=== PATIENT | male | born 1955 | race Caucasian/White ===

== ENCOUNTER 2023-05-02 11:53 | Emergency (ER) | payer MEDICARE, BC, SELFPAY ==
[2023-05-02] VITALS (7 sets, daily range): BP systolic 124–159; BP diastolic 85–92; PULSE 58–73; RESP 14–17; TEMP 36.7; O2SAT 96–100
--- NOTE | ~2023-05-02 | XR_ITS ---
EXAMINATION: XR chest 2V DATE: 05/02/2023 12:26 INDICATION: Substernal chest pain TECHNIQUE: PA and lateral views of the chest are obtained. COMPARISON: None available FINDINGS: The lungs are free of acute opacities. Calcified pulmonary nodules and calcified right teresa r lymph nodes are consistent with old granulomatous disease. No pleural effusion or pneumothorax. The heart size is normal. Changes of cardiac valve replacement are noted. There is mild thoracic spondyl osis. IMPRESSION: 1. No acute cardiopulmonary abnormality. Reviewed, dictated and finalized at location F. RENAL
--- NOTE | 2023-05-02 11:58 | ECG_ITS ---
Measurements Intervals Alvin Rate: 70 P: 104 CO: 198 QRS: 2 QRSD: 91 T: 53 QT: 378 QTc: 409 Interpretive Statements SINUS RHYTHM BASELINE ARTIFACT- I, III, AVL BORDERLINE ECG NO PREVIOUS ECG AVAILABLE FOR COMPARISON Electronically Signed On 05-03-2023 8:41:33 POND SUPERVISOR by Maxime Carey D.O.
[2023-05-02 12:35] LABS: Basophils Percent Auto 0.5 % (0.2-1.2); Eosinophils Absolute Auto 0.1 K/mm3 (0-0.3); Eosinophils Percent Auto 1.4 % (0-4.4); Hematocrit 39.1 % (42.0-52.0); Immature Granulocyte Absolute 0.01 K/mm3 (0.00-0.031); Immature Granulocyte Percent A 0.2 % (0-0.5); Lymphocytes Absolute Auto 1.64 K/mm3 (0.9-3.2); Lymphocytes Percent Auto 25.9 % (18.3-44.2); Mean Corpuscular HGB Conc 33.2 g/dl (32-36); Mean Corpuscular Hemoglobin 31.1 pg (26-34); Mean Corpuscular Volume 93.5 fl (80-100); Mean Platelet Volume 10.5 fl (7.4-10.4); Monocytes Absolute Auto 0.4 K/mm3 (0.1-0.6); Monocytes Percent Auto 6.6 % (2.6-8.5); Neutrophils Absolute Auto 4.2 K/mm3 (1.3-6.7); Neutrophils Percent Auto 65.4 % (45.5-73.1); Platelet Count Result 176 k/mm3 (150-375); Red Blood Count 4.18 M/mm3 (4.6-6.20); Red Cell Distribution Width 12.5 % (11.5-14.5); White Blood Count 6.3 K/mm3 (4.5-10.0)
[2023-05-02 12:40] LABS: Alanine Aminotransferase 21 U/L (6-50); Albumin Level 4.2 g/dL (3.5-5.1); Alkaline Phosphatase 44 U/L (38-126); Anion Gap 8 mmol/L (8-16); Aspartate Amino Transferase 23 U/L (17-59); Bilirubin,Total 0.9 mg/dL (0.2-1.3); Blood Urea Nitrogen 17 mg/dL (9-20); Calcium 9.3 mg/dL (8.4-10.2); Carbon Dioxide 24 mmol/L (22-30); Chloride 105 mmol/L (98-107); Estimated CRCL calculation 67 ml/min; Estimated Glomerular Filt Rate > 60; Glucose 112 mg/dL (65-110); Lipase 46 U/L (23-300); Potassium 3.7 mmol/L (3.4-5.0); Prothrombin Time 13.9 Seconds (11.1-14.7); Sodium 137 mmol/L (137-145)
[2023-05-02 12:42] LABS: Partial Thromboplastin Time 29.3 SECONDS (22.3-36.8)
[2023-05-02 12:51] LABS: Troponin I < 0.012 ng/mL (0.000-0.034)
[2023-05-02] MEDS: Please add drug allergy info to patient profile. 1 EACH XX (12:53)
--- NOTE | 2023-05-02 13:30 | ED.CHESTPAIN ---
HPI - Chest Pain General Chief Complaint: Chest Pain Stated Complaint: chest tightness Time Seen by Provider: 05/02/23 12:27 History of Present Illness HPI narrative: 68-year-old male presenting to emergency department for evaluation of intermittent chest pressure. Patient states he does have a history of aortic valve repair back in 2008 and does have close follow-up with Cardiology. Patient has never had a heart attack. Patient is unsure of when his last stress test was. Patient states sometimes he does have some chest pressure with exertion but states when he works harder the chest pressure goes away. Related Data Allergies Allergy/AdvReac Type Severity Reaction Status Date / Time gadobenic acid Allergy Unknown Verified 05/02/23 12:11 [From contrast - MRI] iohexol Allergy Unknown Verified 05/02/23 12:11 [From contrast - CT, X-RAY] Review of Systems Review of Systems: All systems reviewed & are unremarkable except as noted in HPI and below Exam Narrative: APPEARANCE: Well appearing, no pain, no distress, well-nourished. HEAD: normocephalic, atraumatic. EYES: PERRLA/EOMI, conjunctivae clear. NOSE: Normal no drainage EARS:TMS clear with good light reflex. THROAT: Pharynx clear, no exudate. NECK: Supple. No adenopathy, no masses. RESPIRATORY: Airway patent, respirations nonlabored. Clear to auscultation bilaterally, no rales, rhonchi, wheezing. CARDIOVASCULAR: Regular rate and rhythm without murmurs rubs or gallops. ABDOMINAL: Soft, nontender, nondistended, normal bowel sounds MUSCULOSKELETAL: Moves all extremities. Strength/ROM intact, No edema, No calf tenderness. NEURO: Alert. Cranial nerves II through XII intact. grossly intact SKIN: Warm, dry. Normal Color Course Course Emergency Course: 68-year-old male presents emerged department for evaluation of chest pain. EKG showed no evidence of acute STEMI. Patient is afebrile no leukocytosis and a stable hemoglobin. Patient had negative serial troponins. No significant abnormalities on the patient's CMP. Chest x-ray showed no acute cardiopulmonary abnormality. Patient does not describe exertional chest pain. Patient does have close follow-up with Cardiology. Patient was of the results of his workup was encouraged to have close follow-up for additional outpatient cardiac testing. All questions concerns were addressed and patient was well-appearing at time of discharge. Vital Signs Vital signs: Vital Signs Temperature 98.0 F 05/02/23 11:59 Pulse Rate 73 05/02/23 11:59 Respiratory Rate 15 05/02/23 11:59 Blood Pressure 159/91 H 05/02/23 11:59 Pulse Oximetry 99 05/02/23 11:59 Oxygen Delivery Room Air 05/02/23 11:59 Temperature 98.0 F 05/02/23 11:59 Pulse Rate 60 05/02/23 15:58 Respiratory Rate 14 05/02/23 15:58 Blood Pressure 124/86 05/02/23 15:58 Pulse Oximetry 96 05/02/23 15:58 Oxygen Delivery Room Air 05/02/23 12:18 MDM - Chest Pain Differential Diagnosis Differential diagnosis: Likely pneumothorax, stable angina, atypical chest pain, st elevation myocardial infarction, costochondritis and chest pain Lab Data Attestation: I reviewed the patient's lab results. 05/02/23 12:19 05/02/23 12:19 Labs: Lab Results 05/02/23 05/02/23 Range/Units 12:19 15:06 WBC 6.3 (4.5-10.0) K/mm3 RBC 4.18 L (4.6-6.20) M/mm3 Hgb 13.0 L (14.0-18.0) g/dL Hct 39.1 L (42.0-52.0) % MCV 93.5 (80-100) fl MCH 31.1 (26-34) pg MCHC 33.2 (32-36) g/dl RDW 12.5 (11.5-14.5) % Plt Count 176 (150-375) k/mm3 MPV 10.5 H (7.4-10.4) fl Immature Gran % (Auto) 0.2 (0-0.5) % Neut % (Auto) 65.4 (45.5-73.1) % Lymph % (Auto) 25.9 (18.3-44.2) % [place] % (Auto) 6.6 (2.6-8.5) % Eos % (Auto) 1.4 (0-4.4) % Baso % (Auto) 0.5 (0.2-1.2) % Lymph # (Auto) 1.64 (0.9-3.2) K/mm3 Troup # (Auto) 0.4 (0.1-0.6) K/mm3 Eos # (Auto) 0.1 (0-0.3) K/mm3
[2023-05-02 15:34] LABS: Troponin I < 0.012 ng/mL (0.000-0.034)
== END 2023-05-02 16:01 | disposition home or self-care (01) ==
PROVIDERS: Emergency Provider Emergency Medicine; PCP Family Medicine
DX: R07.89 Other chest pain (principal); Z95.3 Presence of xenogenic heart valve; R94.31 Abnormal electrocardiogram [ECG] [EKG]
CPT/HCPCS: 36415; 71046; 80053; 83690; 84484; 85025; 85610; 85730; 93005; 99284